=== PATIENT | male | born 1960 | race Caucasian/White ===

== ENCOUNTER 2023-07-29 08:03 | Emergency (ER) | payer MEDICARE ==
[2023-07-29 08:18] VITALS: PULSE 96; RESP 16; TEMP 96.5
[2023-07-29] MEDS ORDERED: Sodium Chloride 0.9% 500 ML 500 ML IV ONE ×2 (08:19→08:26)
[2023-07-29] MEDS ORDERED: BENADRYL 50 MG/ML IV ONE (08:20)
[2023-07-29] MEDS ORDERED: solu-MEDROL 125 MG, Sterile H2O 10 ml 2 ML IV ONE ×2 (08:20)
[2023-07-29] MEDS ORDERED: Sterile H2O 10 ml IJ ONE (08:25)
[2023-07-29] MEDS ORDERED: BENADRYL 50 MG/ML ONE (08:25)
[2023-07-29] MEDS ORDERED: solu-MEDROL ONE (08:26)
[2023-07-29] MEDS ORDERED: Sodium Chloride 0.9% 1000 ML 1,000 ML IV SCH (08:30)
[2023-07-29 08:35] LABS: Absolute Neutrophil Ct (ANC) 6.77 x10^3/uL (1.4-6.9); BASOPHIL % 0.9 % (0.0-0.4); Basophil (Absolute #) 0.09 x10^3/uL (0-0.4); Eosinophil % 2.7 % (0.00-5.0); Eosinophil (Absolute #) 0.27 x10^3/uL (0-0.5); Hematocrit 33.9 % (42-50); Hemoglobin 9.9 g/dL (12.5-18.0); IMMATURE GRAN # 0.11 x10^3u/L (0.00-0.03); IMMATURE GRAN % 1.1 % (0.00-0.4); Lymphocyte (Absolute #) 2.11 x10^3/uL (1.0-4.6); Lymphocytes % 21.3 % (24.0-44.0); Mean Cell Volume 84.1 fL (78-100); Mean Corpuscular Hemoglobin 24.6 pg (26-32); Mean Corpuscular Hgb Concent. 29.2 g/dL (32-36); Mean Platelet Volume 8.7 fL (7.5-11.0); Monocyte (Absolute #) 0.54 x10^3/uL (0.0-1.3); Monocytes % 5.5 % (0.0-12.0); Neutrophil % 68.5 % (36.0-66.0); Platelet Count 645 x10^3/uL (150-450); Red Blood Count 4.03 x10^6/uL (4.1-5.6); Red Cell Distribution Width 19.9 % (11.5-14.0); White Blood Count 9.9 x10^3/uL (4.0-10.5)
--- NOTE | 2023-07-29 08:44 | ERPHSYRPT ---
- History of Present Illness Time Seen by Provider: 07/29/23 08:39 Source: patient, family Patient Subjective Stated Complaint: red painful rash to hands, arms, back, started yesterday. Triage Nursing Assessment: . Physician History: Patient is a 63-year-old white male who is being treated with vancomycin and Rocephin for osteomyelitis. Yesterday he started with a painful rash primarily on the upper extremities and the trunk. He denies any difficulty swallowing breathing etc. he does have some ulcerations but those predate the onset of this rash. Timing/Duration: yesterday Quality: burning, itchy, painful Severity: moderate Location: torso, extremities Possible Causes: exposure to allergen (Vancomycin and Rocephin) Associated Symptoms: petechiae, other (The rash appears to be a petechial rash but then other areas are more classically Purpuric) Allergies/Adverse Reactions: tramadol Adverse Reaction (Verified 07/18/23 12:19) Nausea and Vomiting Home Medications: Ascorbic Acid [Vitamin C] 1,000 mg PO DAILY 07/18/23 [History] Aspirin 81 mg PO DAILY 07/18/23 [History] Bumetanide 2 mg PO DAILY 07/18/23 [History] Cholecalciferol (Vitamin D3) [Vitamin D] 5,000 unit PO DAILY 07/18/23 [History] Clopidogrel Bisulfate [Clopidogrel] 75 mg PO DAILY 07/18/23 [History] Echinacea 400 mg PO BID 07/18/23 [History] Gabapentin 200 mg PO QID 07/18/23 [History] Garlic 500 mg PO BID 07/18/23 [History] [place] Esquivel [[place] Berries] 3,060 mg PO BID 07/18/23 [History] Hydrocodone/Acetaminophen [Hydrocodone-Acetamin 10-325 mg] 1 tablet PO Q6-8HPRN PRN 07/18/23 [History] Insulin Aspart [NovoLOG Insulin] CONT-SUBQ 07/18/23 [History] Lactobac 66/Bifido 4/S.thermo [Probiotic Acidophilus 3B Cell] 1 ea PO DAILY 07/18/23 [History] Lansoprazole [Prevacid] 30 mg PO DAILY 07/18/23 [History] Lidocaine 30 gm TP UD 07/18/23 [History] Magnesium Oxide [Magnesium] 400 mg PO DAILY 07/18/23 [History] Metolazone 2.5 mg [Zaroxolyn 2.5 MG] 2.5 mg PO DAILY 07/18/23 [History] Metoprolol Succinate 25 mg PO DAILY 07/18/23 [History] Morphine Sulfate [Morphine Sulfate ER] 20 mg PO Q12H PRN PRN 07/18/23 [History] Niacin (Inositol Niacinate) [Niacin 500 mg Capsule] 500 mg PO BID 07/18/23 [History] [place]-3/Dha/Epa/Fish Oil/Coq10 [Coqmax-[place] 100 mg Softgel] 200 mg PO DAILY 07/18/23 [History] Tamsulosin HCl 0.4 mg [Flomax 0.4 MG] 0.4 mg PO DAILY 07/18/23 [History] Vitamin B Complex [B Complex] 100 mg PO DAILY 07/18/23 [History] Vitamin E(Dl-Alpha Tocopherol) [Alpha Tocopherol] 268 ml MC DAILY 07/18/23 [History] Zinc Citrate [Zinc] 22 mg PO DAILY 07/18/23 [History] Hx Tetanus, Diphtheria Vaccination/Date Given: No Hx Influenza Vaccination/Date Given: No Travel Risk - International Travel Have you traveled outside of the country in past 3 weeks: No - Coronavirus Screening Are you exhibiting any of the following symptoms?: No Close contact with a COVID-19 positive Pt in past 14-21 Days: No - Vaccine Status Have you recieved a Covid-19 vaccination: No - Review of Systems Constitutional: No Fever, No Chills Eyes: No Symptoms Ears, Nose, & Throat: No Symptoms Respiratory: No Cough, No Dyspnea Cardiac: No Chest Pain, No Edema, No Syncope Abdominal/Gastrointestinal: No Abdominal Pain, No Nausea, No Vomiting, No Diarrhea Genitourinary Symptoms: No Dysuria Musculoskeletal: No Back Pain, No Neck Pain Skin: Pruritis, No Rash Neurological: No Dizziness, No Focal Weakness, No Sensory Changes Psychological: No Symptoms Endocrine: No Symptoms All Other Systems: Reviewed and Negative - Past Medical History Pertinent Past Medical History: Yes Neurological History: No Pertinent History ENT History: No Pertinent History Cardiac History: Congestive Heart Failure, Coronary Artery Disease, Other Respiratory History: Sleep Apnea Endocrine Medical History: Diabetes Type II Musculoskeletal History: Other GI Medical History: GERD, Gallbladder Disease History: Other Psycho-Social History: Anxiety Male Reproductive Disorders: Other Other Medical History: toprol to lower heart rate, has pacemaker/defib. 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 No surgeries on left foot" - Social History Smoking Status: Never smoker Exposure to second hand smoke: No Drug Use: none Patient Lives Alone: No - Nursing Vital Signs Nursing Vital Signs: Initial Vital Signs Temperature 96.5 F 07/29/23 08:10 Pulse Rate 96 H 07/29/23 08:10 Respiratory Rate 16 07/29/23 08:10 Blood Pressure 108/81 07/29/23 08:10 O2 Sat by Pulse Oximetry 98 07/29/23 08:10 Pain Scale Pain Intensity 2 - Physical Exam General Appearance: mild distress, alert Eye Exam: PERRL/EOMI, eyes nml inspection Ears, Nose, Throat Exam: normal ENT inspection, pharynx normal, moist mucous membranes Neck Exam: normal inspection, non-tender, supple, full range of motion Respiratory Exam: normal breath sounds, lungs clear, No respiratory distress Cardiovascular Exam: regular rate/rhythm, normal heart sounds Gastrointestinal/Abdomen Exam: soft, mass, No tenderness Back Exam: normal inspection, normal range of motion, No CVA tenderness, No vertebral tenderness Extremity Exam: normal inspection, normal range of motion Neurologic Exam: alert, oriented x 3, cooperative, normal mood/affect, sensation nml, No motor deficits Skin Exam: dry, petechiae (Purpuric rash) Lymphatic Exam: No adenopathy SpO2 Interpretation: normal SpO2: 98 O2 Delivery: Room Air - Course Nursing assessment & vital signs reviewed: Yes Ordered Tests: Active Orders 24 hr Category Date Time Status IV Insertion STAT Care 07/29/23 08:20 Active CBC W DIFF Stat Lab 07/29/23 08:30 Completed CMP Stat Lab 07/29/23 08:30 Completed UA W/RFX UR CULTURE Stat Lab 07/29/23 09:20 Ordered Medication Summary Generic Name Dose Route Start Last Admin Trade Name Krupa PRN Reason Stop Dose Admin Sodium Chloride 1,000 mls @ 200 mls/hr 07/29/23 08:30 07/29/23 08:29 Sodium Chloride 0.9% 1000 Ml IV 08/28/23 08:29 Not Given .Q5H CHAYA Discontinued Medications Generic Name Dose Route Start Last Admin Trade Name Krupa PRN Reason Stop Dose Admin Methylprednisolone Sodium 0 mg 07/29/23 08:20 07/29/23 08:27 Succinate 125 mg/ Sterile IV 07/29/23 08:21 125 mg Water 2 ml STAT ONE Administration Diphenhydramine HCl 50 mg 07/29/23 08:20 07/29/23 08:27 Diphenhydramine Hcl 50 Mg/Ml Vial IV 07/29/23 08:21 50 mg STAT ONE Administration Diphenhydramine HCl Confirm 07/29/23 08:25 Diphenhydramine Hcl 50 Mg/Ml Vial Administered 07/29/23 08:26 Dose 50 mg .ROUTE .STK-MED ONE Sodium Chloride 500 mls @ 500 mls/hr 07/29/23 08:19 07/29/23 08:28 Sodium Chloride 0.9% 500 Ml IV 07/29/23 09:18 500 mls/hr .Q1H ONE Administration Sodium Chloride Confirm 07/29/23 08:26 Sodium Chloride 0.9% 500 Ml Administered 07/29/23 08:27 Dose 500 mls @ ud IV .STK-MED ONE Methylprednisolone Sodium Succinate Confirm 07/29/23 08:26 Methylprednis Sod Succ 125 Mg/2 Ml Vial Administered 07/29/23 08:27 Dose 125 mg .ROUTE .STK-MED ONE Sterile Water Confirm 07/29/23 08:25 Water For Injection,Sterile 10 Ml Vial Administered 07/29/23 08:26 Dose 10 ml IJ .STK-MED ONE Lab/Rad Data: Laboratory Result Diagrams 07/29/23 08:30 07/29/23 08:30 Laboratory Results 07/29/23 07/29/23 Range/Units 08:30 08:30 WBC 9.9 (4.0-10.5) x10^3/uL RBC 4.03 L (4.1-5.6) x10^6/uL Hgb 9.9 L (12.5-18.0) g/dL Hct 33.9 L (42-50) % MCV 84.1 (78-100) fL MCH 24.6 L (26-32) pg MCHC 29.2 L (32-36) g/dL RDW 19.9 H (11.5-14.0) % Plt Count 645 H (150-450) x10^3/uL MPV 8.7 (7.5-11.0) fL Gran % 68.5 H (36.0-66.0) % Immature Gran % (Auto) 1.1 H (0.00-0.4) % Nucleat RBC Rel Count 0.0 (0.00-0.1) % Eos # (Auto) 0.27 (0-0.5) x10^3/uL Immature Gran # (Auto) 0.11 H (0.00-0.03) x10^3u/L Absolute Lymphs (auto) 2.11 (1.0-4.6) x10^3/uL Absolute Monos (auto) 0.54 (0.0-1.3) x10^3/uL Absolute Nucleated RBC 0.00 (0.00-0.01) x10^3u/L Lymphocytes % 21.3 L (24.0-44.0) % Monocytes % 5.5 (0.0-12.0) % Eosinophils % 2.7 (0.00-5.0) % Basophils % 0.9 (0.0-0.4) % Absolute Granulocytes 6.77 (1.4-6.9) x10^3/uL Basophils # 0.09 (0-0.4) x10^3/uL Sodium 134 L (137-145) mmol/L Potassium 3.7 D (3.5-5.1) mmol/L Chloride 95 L (98-107) mmol/L Carbon Dioxide 35 H (22-30) mmol/L Anion Gap 7.4 (5-15) MEQ/L BUN 17 (9-20) mg/dL Creatinine 1.10 (0.66-1.25) mg/dL Estimated GFR > 60.0 ML/MIN Glucose 218 H (74-106) mg/dL Calcium 8.2 L (8.4-10.2) mg/dL Total Bilirubin 0.70 (0.2-1.3) mg/dL AST 58 (17-59) U/L ALT 26 (0-50) U/L Alkaline Phosphatase 710 H (38-126) U/L Serum Total Protein 7.6 (6.3-8.2) g/dL Albumin 3.3 L (3.5-5.0) g/dL - Progress Progress: improved Medical Desision Making - Independent Historian Additional History obtained from: Spouse - Diagnostic Testing Diagnostic test were ordered, analyzed, and reviewed by me: Yes - Risk of complications Low Risk: Low risk of morbidity from additional dx testing or treatment - Departure Departure Disposition: Home Clinical Impression: Medication reaction Condition: Stable Critical Care Time: No Referrals: KARLI ZAMUDIO [Primary Care Provider] - Follow up/PCP as directed Instructions: Adverse Drug Reactions, Adult (DC) Prescriptions: diphenhydrAMINE HCL [Benadryl] 50 mg PO Q6H 5 Days #20 cap Prednisone 10 mg [Deltasone 10 mg] 10 mg PO TID #12 tablet
[2023-07-29 09:02] LABS: ALBUMIN 3.3 g/dL (3.5-5.0); ALKALINE PHOSPHATASE 710 U/L (38-126); ANION GAP 7.4 MEQ/L (5-15); BLOOD UREA NITROGEN 17 mg/dL (9-20); CHLORIDE 95 mmol/L (98-107); Calcium 8.2 mg/dL (8.4-10.2); Carbon Dioxide 35 mmol/L (22-30); EST GLOMERULAR FILTRATION RATE > 60.0 ML/MIN; Glucose 218 mg/dL (74-106); Potassium 3.7 mmol/L (3.5-5.1); SGOT/AST 58 U/L (17-59); SGPT/ALT 26 U/L (0-50); SODIUM 134 mmol/L (137-145); Total Protein 7.6 g/dL (6.3-8.2)
[2023-07-29 09:20] VITALS: BP 114/80
[2023-07-29 09:30] VITALS: O2SAT 98
[2023-07-29 10:38] LABS: ADD URINE CULTURE? NO (NO); Appearance Clear (Clear); Bacteria None Seen /HPF (None Seen); Bilirubin Negative (Negative); Blood Negative (Negative); Epithelial Cells None Seen /HPF (None Seen); Glucose, Urine 500 mg/dL (Negative); Ketones Negative (Negative); Leukocyte Esterase Negative (Negative); Nitrite Negative (Negative); Ph 5.5 (4.6-8.0); Protein,Urine Dip Negative (Negative); RBC 0-2 /HPF (0-5); Specific Gravity 1.025 (1.005-1.030); WBC 0-2 /HPF (0-5)
== END 2023-07-29 09:45 | disposition home or self-care (01) ==
LOC: ED 08:03
DX: L27.0 Generalized skin eruption due to drugs and medicaments taken internally (principal); T36.8X5A Adverse effect of other systemic antibiotics, initial encounter; T36.1X5A Adverse effect of cephalosporins and other beta-lactam antibiotics, initial encounter; E11.22 Type 2 diabetes mellitus with diabetic chronic kidney disease; N18.9 Chronic kidney disease, unspecified; Z79.02 Long term (current) use of antithrombotics/antiplatelets; Z79.891 Long term (current) use of opiate analgesic; Z79.4 Long term (current) use of insulin; Z79.52 Long term (current) use of systemic steroids; Z79.899 Other long term (current) drug therapy; Z28.310 Unvaccinated for COVID-19
CPT/HCPCS: 36000; 36415; 80053; 81001; 85025; 96374; 96375; 99284; J1200; J2930